=== PATIENT | female | born 1975 | race African-American/Black ===

== ENCOUNTER 2017-04-12 11:13 | Emergency (ER) | payer BC ==
[~2017-04-12] VITALS: Ht 182.9 cm; Wt 72.6 kg
[2017-04-12] MEDS ORDERED: GABA-534 PO (11:37)
[2017-04-12] MEDS ORDERED: TRAZ-144 PO (11:37)
[2017-04-12] MEDS ORDERED: CLON1TAB4 PO (11:37)
--- NOTE | 2017-04-12 12:14 | NUR ---
Patient discharged to home in stable conditon. Written and verbal after care instructions given, PRESCRIPTION provided as ordered by MD Mc. Patient verbalizes understanding of instructions. No further questions or concerns ntoed prior on leaving the ED.
[2017-04-12 12:16] VITALS: BP 126/78
== END 2017-04-12 12:33 | disposition home or self-care (01) ==
LOC: ER 11:13
DX: R60.0 Localized edema (principal); I10 Essential (primary) hypertension; Z91.040 Latex allergy status
CPT/HCPCS: A4663